=== PATIENT | female | born 1970 | race Caucasian/White ===

== ENCOUNTER 2019-05-22 16:12 | Emergency (ER) | payer SELFPAY ==
--- OUTSIDE RECORDS SUMMARY | 2019-05-22 16:36 | XMS REPORT | Continuity of Care Document ---
:1970 External Reference #:[id number] Author Name Lakia Vargas M.D. Address [address] [facility] [address] [place] [address] Care Team Providers Name Role Phone Lakia Vargas MD - Family Medicine Care Team Information Onsite Case Manager [phone] Problems Description No Information Available Social History Type Date Description Comments Sex Unknown ETOH Use Rarely consumes alcohol Tobacco Use Start: Unknown Patient has never smoked Smoking Status Reviewed: 05/27/17 Patient has never smoked Allergies, Adverse Reactions, Alerts Active Allergies Reaction Severity Comments Date Augmentin rash 08/11/2011 Morphine SOB 08/11/2011 Dogs 12/20/2011 Cats 12/20/2011 Dust 12/20/2011 Medications Active Medications SIG Qnty Indications Ordering Provider Date Lisinopril-Hydrochloro 1 by mouth 30tabs I10 Lakia Vargas, 04/23/2019 thiazide every day M.D. 10-12.5mg Tablets Levaquin 1 tabs by mouth 14tabs J18.0 Lakia Vargas, 04/10/2019 500mg Tablets every day M.D. Citalopram 1 by mouth 30tabs F41.9 Lakia Vargas, 07/10/2018 Hydrobromide every day M.D. 20mg Tablets F33.9 Womens Daily Formula/Folic 1 by mouth every 90tabs E55.9 Lakia Vargas, 07/10/2018 Acid/Calcium/Iron day M.D. Tablets Vitamin D-1000 2 by mouth every Lakia Vargas, 07/25/2012 1000Unit Tablets day M.D. Immunizations Description No Information Available Vital Signs Date Vital Result Comment 04/23/2019 2:50pm BP Systolic 156 mmHg BP Diastolic 98 mmHg Height 67 inches 5'7" Weight 236.00 lb BMI (Body Mass Index) 37.0 kg/m2 Heart Rate 78 /min Respiratory Rate 16 /min 04/10/2019 3:35pm BP Systolic 160 mmHg BP Diastolic 74 mmHg Height 67 inches 5'7" Weight 232.00 lb BMI (Body Mass Index) 36.3 kg/m2 Heart Rate 90 /min Body Temperature 96.6 F Respiratory Rate 16 /min Results Description No Information Available Procedures Description No Information Available Medical Devices Description No Information Available Encounters Type Date Location Provider Dx Diagnosis Office Visit 04/23/2019 Lakia Carranza, L20.9 Atopic dermatitis, 3:00p M.DSharron unspecified J30.9 Allergic rhinitis, unspecified L91.8 Other hypertrophic disorders of the skin E66.9 Obesity, unspecified F41.9 Anxiety disorder, unspecified F33.9 Major depressive disorder, recurrent, unspecified E55.9 Vitamin D deficiency, unspecified N39.46 Mixed incontinence E78.2 Mixed hyperlipidemia R73.01 Impaired fasting glucose I10 Essential (primary) hypertension J18.0 Bronchopneumonia, unspecified organism Office Visit 04/10/2019 3:30p Cheryl Chew N.P. L20.9 Atopic dermatitis, unspecified J30.9 Allergic rhinitis, unspecified L91.8 Other hypertrophic disorders of the skin E66.9 Obesity, unspecified F41.9 Anxiety disorder, unspecified F33.9 Major depressive disorder, recurrent, unspecified E55.9 Vitamin D deficiency, unspecified N39.46 Mixed incontinence E78.2 Mixed hyperlipidemia R73.01 Impaired fasting glucose R03.0 Elevated blood-pressure reading, w/o diagnosis of htn J18.0 Bronchopneumonia, unspecified organism Assessments Date Code Description Provider 04/23/2019 L20.Gena Atopic dermatitis, unspecified Lakia Vargas M.D. 04/23/2019 J30.9 Allergic rhinitis, unspecified Lakia Vargas M.D. 04/23/2019 L91.8 Other hypertrophic disorders of the skin Lakia Vargas M.D. 04/23/2019 E66.9 Obesity, unspecified Lakia Vargas M.D. 04/23/2019 F41.9 Anxiety disorder, unspecified Lakia Vargas M.D. 04/23/2019 F33.9 Major depressive disorder, recurrent, Lakia Vargas M.D. unspecified 04/23/2019 E55.9 Vitamin D deficiency, unspecified Lakia Vargas M.D. 04/23/2019 N39.46 Mixed incontinence Lakia Vargas M.D. 04/23/2019 E78.2 Mixed hyperlipidemia Lakia Vargas M.D. 04/23/2019 R73.01 Impaired fasting glucose Lakia Vargas M.D. 04/23/2019 I10 Essential (primary) hypertension Lakia Vargas M.D. 04/23/2019 J18.0 Bronchopneumonia, unspecified organism Lakia Vargas M.D. 04/10/2019 L20.9 Atopic dermatitis, unspecified Ulises Chew, N.P. 04/10/2019 J30.9 Allergic rhinitis, unspecified Ulises Chew, N.P. 04/10/2019 L91.8 Other hypertrophic disorders of the skin Ulises Chew, N.P. 04/10/2019 E66.9 Obesity, unspecified Ulises Chew, N.P. 04/10/2019 F41.9 Anxiety disorder, unspecified Ulises Chew, N.P. 04/10/2019 F33.9 Major depressive disorder, recurrent, Ulises Chew, N.P. unspecified 04/10/2019 E55.9 Vitamin D deficiency, unspecified Ulises Chew, N.P. 04/10/2019 N39.46 Mixed incontinence Ulises Chew, N.P. 04/10/2019 E78.2 Mixed hyperlipidemia Ulises Chew, N.P. 04/10/2019 R73.01 Impaired fasting glucose Ulises Chew, N.P. 04/10/2019 R03.0 Elevated blood-pressure reading, without Ulises Chew, N.P. diagnosis of hypertension 04/10/2019 J18.0 Bronchopneumonia, unspecified organism Ulises Chew, N.P. Plan of Treatment 04/23/2019 - Lakia Vargas M.D.L20.9 Atopic dermatitis, unspecifiedComments: SKIN CARE INSTRUCTIONS EUCERIN CREAM OR BABY OIL 2-3 APPLICATION PER DAYUSE MOISTURIZING SOAPAVOID PROLONGED WATER EXPOSUREAVOID USING HOT WATER IN EYHQLPH44.9 Allergic rhinitis, unspecifiedComments:INCREASE PO FLUID USE ANTIHISTAMINE PRN SECOND HAND SMOKING OWCDRPLAWN78.8 Other hypertrophic disorders of the skinComments:RESOLVED ON IT'S [id number] Obesity, unspecifiedComments:WT LOSS COUNCELLINGEXERCISEDIET UUOKQKVKAWVY96.9 Anxiety disorder, unspecifiedComments:COUNCELLING AND REASSURANCE RELAXATION TECHNIQUESSTRESSORS IN LIFE AVOID ALL ENERGY/HIGH CAFFEINE ZFXMJLW40.9 Major depressive disorder, recurrent, unspecifiedComments:COUNCELLING AND REASSURANCE RELAXATION TECHNIQUESSTRESSORS IN LIFE AVOID ALL ENERGY/HIGH CAFFEINE TBTHVXF93.9 Vitamin D deficiency, unspecifiedComments:INCREASE EXPOSURE TO SUNREVIEW OF DIETN39.46 Mixed incontinenceComments:COUNCELED SKIN CARE INSTRUCTIONSUSE DIAPER PRNE78.2 Mixed hyperlipidemiaComments:DIET REVIEWED CONTINUE DIETWT LOSSF/U LAB FBWR73.01 Impaired fasting glucoseComments:F/U HGAICFS QAC AN HS PRNLOW GLUCOSE DIETI10 Essential (primary) hypertensionNew Medication:Lisinopril-Hydrochlorothiazide 10-12.5 mg - 1 by mouth every dayComments:CHECK BP TIW ( PRN)DIET AND FLUID COUNSELING LOW SODIUM DIETWT LOSSF /U LABJ18.0 Bronchopneumonia, unspecified organismComments:RESOLVED Functional Status Description No Information Available Mental Status Description No Information Available Referrals Description No Information Available
--- OUTSIDE RECORDS SUMMARY | 2019-05-22 16:36 | XMS REPORT | Continuity of Care Document ---
:1970 External Reference #:[id number] Author Name Ulises Chew N.P. Address [address] [facility] [address] [place] [address] Care Team Providers Name Role Phone Lakia Vargas MD - Family Medicine Care Team Information Industrial Illuminating Engineer [phone] Problems Description No Information Available Social History [...] Medications SIG Qnty Indications Ordering Provider Date Levaquin 1 tabs by mouth 14tabs J18.0 [...] Available Vital Signs Date Vital Result Comment 04/10/2019 3:35pm BP Systolic 160 mmHg BP Diastolic 74 mmHg Height 67 inches 5'7" Weight 232.00 lb BMI (Body Mass Index) 36.3 kg/m2 Heart Rate 90 /min Body Temperature 96.6 F Respiratory Rate 16 /min 08/25/2018 3:46pm BP Systolic 154 mmHg BP Diastolic 74 mmHg BP Systolic Recheck 134 mmHg BP Diastolic Recheck 84 mmHg Height 67 inches 5'7" Weight 226.00 lb BMI (Body Mass Index) 35.4 kg/m2 Heart Rate 76 /min Respiratory Rate 16 /min Results Description No Information Available Procedures Description No Information Available Medical Devices Description No Information Available Encounters Type Date Location Provider Dx Diagnosis Office Visit 04/10/2019 Cheryldorie Chew, N.P. L20.9 Atopic dermatitis, 3:30p unspecified J30.9 Allergic rhinitis, unspecified L91.8 Other hypertrophic disorders of the skin E66.9 Obesity, unspecified F41.9 Anxiety disorder, unspecified F33.9 Major depressive disorder, recurrent, unspecified E55.9 Vitamin D deficiency, unspecified N39.46 Mixed incontinence E78.2 Mixed hyperlipidemia R73.01 Impaired fasting glucose R03.0 Elevated blood-pressure reading, w/o diagnosis of htn J18.0 Bronchopneumonia, unspecified organism Assessments Date Code Description Provider 04/10/2019 L20.9 Atopic dermatitis, unspecified Ulises Chew, N.P. 04/10/2019 J30.9 Allergic rhinitis, unspecified Ulises Chew, N.P. 04/10/2019 L91.8 Other hypertrophic disorders of the skin Ulises Chew N.P. 04/10/2019 E66.9 Obesity, unspecified Ulises Chew, N.P. 04/10/2019 F41.9 Anxiety disorder, unspecified Ulises Chew, N.P. 04/10/2019 F33.9 Major depressive disorder, recurrent, Ulises Chew N.P. unspecified 04/10/2019 E55.9 Vitamin D deficiency, unspecified Ulises Chew, N.P. 04/10/2019 N39.46 Mixed incontinence Ulises Chew, N.P. 04/10/2019 E78.2 Mixed hyperlipidemia Ulises Chew, N.P. 04/10/2019 R73.01 Impaired fasting glucose Ulises Chew N.P. 04/10/2019 R03.0 Elevated blood-pressure reading, without Ulises Chew, N.P. diagnosis of hypertension 04/10/2019 J18.0 Bronchopneumonia, unspecified organism Ulises Chew, N.P. Plan of Treatment No Information Available Functional Status Description No Information Available Mental Status Description No Information Available Referrals Description No Information Available
--- NOTE | 2019-05-22 16:45 | UC ---
Knee Pain HPI - HPI Summary HPI Summary: 49 yo female presents with LEFT knee pain. She tells me that over the last 4 days has had inner left knee pain. She did not have a known injury, but states it possible she could have "tweaked it" as she is walking gingerly due to the bad weather. She did fall 2 days ago on the ice, but her knee hurt before that time and is not worse after falling. She has been taking tylenol for her discomfort with little relief. Denies numbness or tingling. - History of Current Complaint Stated Complaint: LEFT KNEE INJURY Time Seen by Provider: 05/22/19 16:44 Hx Obtained From: Patient Hx Last Menstrual Period: Mirena IUD Onset/Duration: Gradual Onset Severity Initially: Moderate Severity Currently: Moderate Pain Intensity: 5 Pain Scale Used: 0-10 Numeric - Allergies/Home Medications Allergies/Adverse Reactions: Allergies Allergy/AdvReac Type Severity Reaction Status Date / Time amoxicillin [From Augmentin] Allergy Rash Verified 05/22/19 16:41 clavulanic acid Allergy Rash Verified 05/22/19 16:41 [From Augmentin] morphine Allergy Difficulty Verified 05/22/19 16:41 Breathing/Wheezing Home Medications: Home Medications Acetaminophen [Tylenol Extra Strength] 1,000 mg PO ONCE 05/22/19 [History Confirmed 05/22/19] Citalopram TAB* [CeleXA TAB*] 20 mg PO DAILY 05/22/19 [History Confirmed ] Lisinopril/Hydrochlorothiazide [Lisinopril-Hctz 10-12.5 mg Tab] 1 tab PO DAILY 05/22/19 [History Confirmed 05/22/19] PMH/Surg Hx/FS Hx/Imm Hx Cardiovascular History: Hypertension Psychological History: Anxiety, Depression - Surgical History Surgical History: Yes Surgery Procedure, Year, and Place: [place]olecyst[facility], [place], [place] - Family History Known Family History: Positive: Non-Contributory - Social History Occupation: Employed Full-time Lives: With Family Alcohol Use: Occasionally Substance Use Type: None Smoking Status (MU): Never Smoked Tobacco - Immunization History Most Recent Tetanus Shot: None on file at [facility] Review of Systems All Other Systems Reviewed And Are Negative: No Constitutional: Positive: Negative Skin: Positive: Negative Respiratory: Positive: Negative Cardiovascular: Positive: Negative Neurovascular: Positive: Negative Musculoskeletal: Positive: Other: - LEft knee pain Neurological: Positive: Negative Psychological: Positive: Negative Physical Exam - Summary Physical Exam Summary: GENERAL: NAD. WDWN. No pain distress. SKIN: No rashes, sores, lesions, or open wounds. CHEST: No accessory muscle use. Breathing comfortably and in no distress. CV: Pulses intact popliteal, PT, and DP. Cap refill <2seconds MSK: LEFT KNEE: Mild TTP medial knee. POSITIVE medial yoly. Strength 5/5. No edema or obvious bony deformities. No patella apprehension. Negative Nicky , A/P drawer, and varus/valgus stress. NEURO: Alert. Sensations intact and symmetric B/L LEs PSYCH: Age appropriate behavior. Triage Information Reviewed: Yes Vital Signs: Vital Signs: Temp Pulse Resp BP Pulse Ox 99.1 F 77 16 123/82 99 05/22/19 16:44 05/22/19 16:44 05/22/19 16:44 05/22/19 16:44 05/22/19 16:44 Vital Signs Reviewed: Yes Diagnostics - Radiology Knee XR Radiology Interpretation Completed By: Radiologist Summary of Radiographic Findings: IMPRESSION: #. Mild osteoarthritis. Knee Pain Course/Dx - Course Course Of Treatment: XR as above. Suspect knee pain due to strain or flare of arthritis. Will rx for naproxen and have her continue RICE therapy. F/u with Ortho if symptoms do not improve - Differential Dx/Diagnosis Provider Diagnosis: Knee pain Discharge ED - Sign-Out/Discharge Documenting (check all that apply): Patient Departure All imaging exams completed and their final reports reviewed: Yes - Discharge Plan Condition: Stable Disposition: HOME Prescriptions: Naproxen [Naproxen 500 mg tab] 500 mg PO BID #14 tablet. Patient Education Materials: Knee Pain (ED) Referrals: Lakia Vargas MD [Primary Care Provider] - Dana Azul MD [Medical Doctor] - If Needed Additional Instructions: If you develop a fever, shortness of breath, chest pain, new or worsening symptoms - please call your PCP or go to the ED immediately. 1) Continue to rest, ice, and elevate your knee 2) May continue taking tylenol in addition to the Naproxen as prescribed 3) If your symptoms worsen or do not improve, I recommend that you call Orthopedics at the number below to schedule an appointment for a recheck - Billing Disposition and Condition Condition: STABLE Disposition: Home
[2019-05-22 16:49] VITALS: BP 123/82
== END 2019-05-22 17:15 | disposition home or self-care (01) ==
LOC: UCCORT 16:12
DX: M25.562 Pain in left knee (principal); F41.9 Anxiety disorder, unspecified; F32.9 Major depressive disorder, single episode, unspecified; I10 Essential (primary) hypertension; Z79.899 Other long term (current) drug therapy; Z88.0 Allergy status to penicillin; Z88.5 Allergy status to narcotic agent
CPT/HCPCS: 99202; G0463